=== PATIENT | female | born 1980 | race Caucasian/White ===

== ENCOUNTER 2017-06-17 20:02 | Emergency (ER) | payer OTHER ==
[~2017-06-17] VITALS: Ht 170.2 cm; Wt 80.5 kg
[~2017-06-17 20:02] MED LIST: BACTRIM,SEPT1 TABLET PO; BACTROBAN NASAL1 G1 BOTH NARES; DENAVIR1.5 GM TP; ENDOCET 5-3251 EACH; FLUCONAZOLE150 MG; IBUPROFEN800 MG; METRONIDAZOLE500 MG; NAPROSYN500 MG PO; NOHOMEMEDS; ULTRACET1 TABLET PO
[2017-06-18] MEDS ORDERED: MOTRIN800 MG PO (00:17)
[2017-06-18] MEDS ORDERED: VALIUM5 MG PO (00:17)
[2017-06-18] MEDS ORDERED: NORCO 7.5/321 TABLET PO (00:17)
[2017-06-18 00:28] VITALS: BP 135/75
== END 2017-06-18 00:29 | disposition home or self-care (01) ==
LOC: EME 20:02 → EXP 20:02
DX: S16.1XXA Strain of muscle, fascia and tendon at neck level, initial encounter (principal); S29.012A Strain of muscle and tendon of back wall of thorax, initial encounter; S60.222A Contusion of left hand, initial encounter; M77.8 Other enthesopathies, not elsewhere classified; V49.40XA Driver injured in collision with unspecified motor vehicles in traffic accident, initial encounter; Y92.410 Unspecified street and highway as the place of occurrence of the external cause; K21.9 Gastro-esophageal reflux disease without esophagitis; F17.200 Nicotine dependence, unspecified, uncomplicated; Z88.5 Allergy status to narcotic agent
CPT/HCPCS: 73080; 73130; 99281; 99284

== ENCOUNTER 2017-08-21 15:52 | Emergency (ER) | payer OTHER ==
[~2017-08-21] VITALS: Ht 170.2 cm; Wt 79.2 kg
[~2017-08-21 15:52] MED LIST changes: +MOTRIN800 MG PO; +NORCO 7.5/321 TABLET PO; +VALIUM5 MG PO
[2017-08-21 16:40] LABS: HEMATOCRIT 42.6 % (36.0-46.0); HEMOGLOBIN 15.1 G/DL (11.9-15.5); MCH 33.3 PG (29.0-34.0); MCHC 35.4 G/DL (30.0-36.0); MCV 93.8 FL (83-99); PLATELET COUNT 348 K/uL (156-360); RBC DIS.WIDTH-CV 12.1 % (11.8-14.6); RBC DIS.WIDTH-SD 42.3 % (39-53); RED BLOOD COUNT 4.54 M/uL (3.80-5.20); WHITE BLOOD COUNT 16.5 K/uL (4.1-10.2)
[2017-08-21 16:50] LABS: ALBUMIN 4.3 g/dL (3.2-4.8); CHLORIDE 107 mEq/L (99-109)
[2017-08-21 16:51] LABS: SODIUM 138 mEq/L (136-147)
[2017-08-21 16:53] LABS: GLUCOSE 85 mg/dL (70-99); TOTAL PROTEIN 7.7 g/dL (6.4-8.3)
[2017-08-21 16:55] LABS: TOTAL BILIRUBIN 0.5 mg/dL (0.0-1.0)
[2017-08-21 16:56] LABS: ALKALINE PHOSPHATASE 83 IU/L (3-129); CREATININE 0.9 mg/dL (0.6-1.3); GFR ESTIMATE (CALCULATED) > 59 mL/min/
[2017-08-21 16:58] LABS: AST (GOT) 15 IU/L (2-34); UREA NITROGEN (BUN) 9 mg/dL (9-23)
[2017-08-21 16:59] LABS: ALT (GPT) 11 IU/L (3-49)
[2017-08-21 17:06] LABS: QUANTITATIVE HCG < 4.0 MIU/ML
[2017-08-21 17:36] LABS: APPEARANCE SL.HAZY ((CLEAR)); BILIRUBIN NEGATIVE; BLOOD MODERATE; COLOR YELLOW ((YELLOW)); GLUCOSE (STRIP) NEGATIVE; KETONES 5; LEUKOCYTES NEGATIVE; NITRITE NEGATIVE; PROTEIN (STRIP) NEGATIVE; SPECIFIC GRAVITY 1.006 (1.000-1.030); UROBILINOGEN 0.2 MG/DL (0.2-1.0)
[2017-08-21 17:40] LABS: BACTERIA RARE /HPF; EPITHELIAL CELLS RARE /HPF; MUCUS TRACE /LPF; RED BLOOD CELLS 0-5 /HPF (0-5); UCUL ADDED? NO; WHITE BLOOD CELLS 0-5 /HPF (0-5)
[2017-08-21 17:45] VITALS: BP 139/79
== END 2017-08-21 17:46 | disposition left against medical advice (07) ==
LOC: EME 15:52 → RME 15:52
PROVIDERS: Nurse Practitioner Family
DX: G43.909 Migraine, unspecified, not intractable, without status migrainosus (principal); M54.12 Radiculopathy, cervical region; K21.9 Gastro-esophageal reflux disease without esophagitis; Z88.5 Allergy status to narcotic agent; F17.200 Nicotine dependence, unspecified, uncomplicated
CPT/HCPCS: 80053; 81003; 84702; 85027; 99281; 99285; J1100; J1885; J2060; J2765; J7030